=== PATIENT | male | born 1960 | race African-American/Black ===

== ENCOUNTER 2019-12-10 19:26 | Emergency (ER) | payer OTHER ==
--- NOTE | 2019-12-10 19:56 | ED ---
Throat Pain/Nasal Congestion - HPI Summary HPI Summary: Patient presents with swollen lips and periorbital pain started this evening when he woke up from a nap. Patient has history of dental pain, states history of swollen face with dental infections. Denies new food, medications, SOB, throat pain, trauma, N/V. - History of Current Complaint Chief Complaint: EDDentalPain Time Seen by Provider: 12/10/19 19:53 Hx Obtained From: Patient Onset/Duration: Sudden Onset, Lasting Hours Severity: Moderate Associated Signs And Symptoms: Positive: Negative Cough: None - Allergies/Home Medications Allergies/Adverse Reactions: Allergies Allergy/AdvReac Type Severity Reaction Status Date / Time No Known Allergies Allergy Verified 12/10/19 19:31 PMH/Surg Hx/FS Hx/Imm Hx Endocrine/Hematology History: Denies: Hx Anticoagulant Therapy, Hx Diabetes, Hx Thyroid Disease Cardiovascular History: Denies: Hx Hypertension, Hx Pacemaker/ICD Respiratory History: Reports: Other Respiratory Problems/Disorders - collapsed lung as a child Denies: Hx Asthma, Hx Chronic Obstructive Pulmonary Disease (COPD) History: Denies: Hx Renal Disease Sensory History: Denies: Hx Eye Prosthesis Opthamlomology History: Denies: Hx Legally Blind EENT History: Denies: Hx Deafness Neurological History: Denies: Hx Dementia, Hx Seizures Psychiatric History: Denies: Hx Substance Abuse - Cancer History Cancer Type, Location and Year: collapsed lung in past - Immunization History Immunizations Up to Date: No Infectious Disease History: No Infectious Disease History: Denies: Hx Hepatitis, Hx Human Immunodeficiency Virus (HIV), Traveled Outside the [place] in Last 30 Days - Family History Known Family History: Positive: Hypertension - siblings - Social History Alcohol Use: Occasionally Hx Substance Use: No Substance Use Type: Reports: None Hx Tobacco Use: Yes Smoking Status (MU): Light Every Day Tobacco Smoker Review of Systems Constitutional: Negative Eyes: Negative ENT: Other Cardiovascular: Negative Respiratory: Negative Gastrointestinal: Negative Genitourinary: Negative Musculoskeletal: Negative Skin: Negative Neurological: Negative Psychological: Normal All Other Systems Reviewed And Are Negative: Yes Physical Exam - Summary Physical Exam Summary: Swelling of upper and lower lips bilaterally. Induration of skin between upper lip and base of nose. Swelling of same intraorally. No apical abscess or evidence of fluctuation. Multiple dental caries. Triage Information Reviewed: Yes Vital Signs On Initial Exam: Initial Vitals Temp Pulse Resp BP Pulse Ox 98.6 F 82 16 156/89 97 12/10/19 19:27 12/10/19 19:27 12/10/19 19:27 12/10/19 19:27 12/10/19 19:27 Vital Signs Reviewed: Yes Appearance: Positive: Well-Appearing Skin: Positive: Warm Head/Face: Positive: Normal Head/Face Inspection Eyes: Positive: Normal ENT: Positive: Normal ENT inspection Dental: Positive: Gross Decay/Caries @, Cellulitis @. Negative: Abscess @, Bleeding Respiratory/Lung Sounds: Positive: Clear to Auscultation Cardiovascular: Positive: Normal Abdomen Description: Positive: Nontender Musculoskeletal: Positive: Normal Neurological: Positive: Normal Psychiatric: Positive: Normal AVPU Assessment: Alert - [place] Coma Scale Best Eye Response: 4 - Spontaneous Best Motor Response: 6 - Obeys Commands Best Verbal Response: 5 - Oriented Coma Scale Total: 15 Procedures - Sedation Patient Received Moderate/Deep Sedation with Procedure: No Diagnostics - Vital Signs Vital Signs Temp Pulse Resp BP Pulse Ox 12/10/19 19:27 98.6 F 82 16 156/89 97 - Laboratory Lab Statement: Any lab studies that have been ordered have been reviewed, and results considered in the medical decision making process. EENT Course/Dx - Course Course Of Treatment: Patient presents with swollen lips and periorbital pain started this evening when he woke up from a nap. Patient has history of dental pain, states history of swollen face with dental infections. Denies new food, medications, SOB, throat pain, trauma, N/V. Vital signs within normal limits. Rx for clindamycin. - Diagnoses Provider Diagnoses: Dental abscess, Dental caries Discharge ED - Sign-Out/Discharge Documenting (check all that apply): Patient Departure - Discharge Plan Condition: Stable Disposition: HOME Prescriptions: clindamycin HCL [Clindamycin HCl] 450 mg PO TID 7 Days #63 capsule Patient Education Materials: Dental Abscess (ED) Forms: *Work Release Referrals: No Primary Care Phys,NOPCP [Primary Care Provider] - Additional Instructions: Take antibiotics as directed 3 times a day for 7 days. Follow up with your dentist as soon as possible. Alternate ibuprofen 600 mg with Tylenol 650 mg every 3 hours for pain if needed. Return to the ED for any new or worsening symptoms. - Billing Disposition and Condition Condition: STABLE Disposition: Home
[2019-12-10] MEDS ORDERED: Clindamycin CAP* 150 MG PO ONE (20:09)
[2019-12-10 21:27] VITALS: BP 154/78
== END 2019-12-10 21:29 | disposition home or self-care (01) ==
LOC: ED 19:26
DX: K04.7 Periapical abscess without sinus (principal); K02.9 Dental caries, unspecified; F17.210 Nicotine dependence, cigarettes, uncomplicated
CPT/HCPCS: 99282; A9270-GY